=== PATIENT | female | born 1970 | race Caucasian/White ===

== ENCOUNTER → 2018-02-28 | Day surgery (SDC) | payer OTHER ==
[~2018-02-28] MED LIST: CYCLOBENZAPRINE5 MG PO; EPI PEN; FENOFIBRATE145 MG; FERROUS FUMARA324 MG; LEVOCETIRIZINE D5 MG; LIDOCAINE HCL 2% LOCAL INJ 5 ML SDV VIAL INJ ONE; METFORMIN HCL500 MG PO; MIDAZOLAM HCL 5MG/ML 2ML VIAL ONE; NASAL SPRAY30 M1; OMEPRAZOLE40 MG; PROPOFOL IV EMULSION 10 MG/ML 50 ML VIAL ONE; SINGULAIR10 MG; SUCRALFATE1 GM PO; TRAZODONE HCL50 MG PO; TRINTELLIX; VENTOLIN HFA18 GM; VITAMIN B-121000 MCG PO; VITAMIN D3 PO; [UNRECOGNIZED DRUG - OTHER]
[2018-02-28 14:57] LABS: WBC,FECAL (FECAL LACTOFERRIN) NEGATIVE (NEGATIVE)
--- NOTE | 2018-02-28 15:32 | Operative Report ---
DATE OF PROCEDURE: February 28, 2018 REFERRING PHYSICIAN: Dr. Momo Carmona. PROCEDURES PERFORMED: 1. Esophagogastroduodenoscopy with biopsies. 2. Colonoscopy with polypectomy and biopsies. INDICATIONS FOR ESOPHAGOGASTRODUODENOSCOPY: Heartburn indigestion. INDICATIONS FOR COLONOSCOPY: Colorectal cancer screening. Lower abdominal pain. Diarrhea. History of fecal incontinence. MEDICATION: Patient was done under MAC. Please see anesthesiologist's note. PROCEDURE: With patient in the left lateral decubitus position, the flexible fiberoptic Olympus gastroscope was introduced into the esophagus under direct visualization without any difficulty. There was some patchy erythema noted in the distal esophagus. The scope was then advanced with ease into the stomach, traversing a moderate-sized hiatal hernia. Mucosa overlying the antrum and the body revealed some patchy intense erythema with mild to moderate edema, and biopsies were obtained and sent to stain for H. pylori. Some scattered hyperplastic-appearing polyps were noted in the body of the stomach, and some were partially excised with the cold biopsy forceps. The pylorus was of normal contour and shape, was intubated with ease, and scope was advanced all the way to the 2nd portion of the duodenum. There was approximately a 6 mm polypoid lesion noted in the proximal 2nd portion, and that was biopsied. The mucosa overlying the duodenal bulb appeared to be within normal limits. The scope was then withdrawn back into the stomach and retroflexed, and the mucosa overlying the fundus and the cardia appeared to be within normal limits. The scope was then straightened out. The stomach was decompressed. The scope was subsequently withdrawn. Patient tolerated the procedure well. IMPRESSION: 1. Distal esophagitis, mild. 2. Moderate-sized hiatal hernia. 3. Gastritis biopsied. Biopsies sent to stain for H. pylori. 4. Gastric polyps, body, some partially excised with the cold biopsy forceps. 5. Approximately 6 mm polypoid lesion proximal 2nd portion of duodenum biopsied. PLAN: Follow up histology. Increase omeprazole to 40 mg 1 p.o. a.c. b.i.d. Patient was then turned around and after adequate lubrication of the anal canal, a flexible fiberoptic Olympus colonoscope was inserted into the rectum with ease and advanced all the way to the cecum. A minute polyp was noted in the cecum, and that was excised with the cold biopsy forceps. The ileocecal valve was intubated, and the scope was advanced into the terminal ileum. Biopsies were obtained. The scope was then withdrawn back into the colon. It was then withdrawn slowly, and mucosa overlying the ascending and the transverse appeared to be within normal limits. Some patchy mild inflammatory changes were noted in the distal descending, the sigmoid and the rectum, and random biopsies were obtained. One polyp was hot biopsied from the sigmoid colon. The scope was then retroflexed into the distal rectum and small internal hemorrhoids were noted, none of which was actively bleeding. The scope was then straightened out. It was subsequently withdrawn after securing an adequate stool specimen that was sent for the appropriate stool studies. Patient tolerated procedure well. IMPRESSION: 1. Cecal polyp, minute, excised with the cold biopsy forceps. 2. Mild patchy left-sided colitis. 3. Sigmoid colon polyp hot biopsied. 4. Proctitis, mild, biopsied. 5. Internal hemorrhoids, none actively bleeding. PLAN: Follow up histology. Follow up stool studies. Initiate VSL#3 one p.o. daily and Bentyl 10 mg one p.o. t.i.d.. Patient will need a followup colonoscopy in 3 to 5 years. Job#: [id number] cc:MOMO CARMONA MD
[2018-03-01 10:20] LABS: C DIFFICILE TOXIN A&B AMP PROB NEGATIVE (NEGATIVE)
== END | disposition home or self-care (01) ==
LOC: OR 10:28
PROVIDERS: ATTEND Internal Medicine Gastroenterology
DX: Z12.11 Encounter for screening for malignant neoplasm of colon (principal); Z86.010 Personal history of colon polyps; R12 Heartburn; R11.0 Nausea; R19.7 Diarrhea, unspecified; K20.9 Esophagitis, unspecified; K44.9 Diaphragmatic hernia without obstruction or gangrene; K29.70 Gastritis, unspecified, without bleeding; K63.5 Polyp of colon; K51.50 Left sided colitis without complications; K62.89 Other specified diseases of anus and rectum; K64.8 Other hemorrhoids; J45.909 Unspecified asthma, uncomplicated; E11.9 Type 2 diabetes mellitus without complications
CPT/HCPCS: 36415; 43239; 45384; 81025; 82948; 83630; 83993; 87045; 87177; 87328; 87493; J2001; J2250; 45380

== ENCOUNTER → 2019-02-01 | Day surgery (SDC) | payer OTHER ==
[~2019-02-01] MED LIST changes: +DICYCLOMINE HCL20 MG PO; +FENTANYL CITRATE/PF 100MCG/2 ML INJ ONE; +LATUDA20 MG PO; -LIDOCAINE HCL 2% LOCAL INJ 5 ML SDV VIAL INJ ONE; +MIDAZOLAM HCL 2 MG/2 ML VIAL ONE; -MIDAZOLAM HCL 5MG/ML 2ML VIAL ONE; +VITAMIN D1000 UNI1 PO; +VYVANSE20 MG PO
--- OUTSIDE RECORDS SUMMARY | 2019-02-01 11:41 | XMS REPORT | Continuity of Care Document ---
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 Role Phone [employer] Information [employer] Unavailable Unavailable Problems Problem Status Onset Date Classification Date Reported Comments Source Acute upper respiratory infection 06/04/2016 Diagnosis 06/04/2016 [facility] Allergic rhinitis 06/04/2016 Diagnosis 06/04/2016 [facility] Dysfunction of Eustachian Tube Problem 06/04/2016 [facility] Acute Pharyngitis Problem 06/04/2016 [facility] Upper Respiratory Infection Problem 06/04/2016 [facility] Acute Upper Respiratory Infection Problem 06/04/2016 [facility] Allergic Rhinitis Problem 06/04/2016 [facility] Cellulitis Problem 06/04/2016 [facility] Medications Medication Details Route Status Patient Instructions Ordering Provider Order Date Source 200 ACTUAT Albuterol 0.09 MG/ACTUAT Metered Dose Inhaler albuterol sulfate HFA 90 mcg/actuation aerosol inhaler Inhale 2 puffs every 4-6 hours by inhalation route as needed for wheezing. Active [facility] Amoxicillin 500 MG Oral Capsule amoxicillin 500 mg capsule Active [facility] Antipyrine 54 MG/ML / Benzocaine 14 MG/ML Otic Solution antipyrine-benzocaine 5.4 %-1.4 % ear drops Active [facility] aripiprazole 2 MG Oral Tablet aripiprazole 2 mg tablet Active [facility] Aspirin 81 MG Delayed Release Oral Tablet aspirin 81 mg tablet,delayed release Active [facility] Azelastine hydrochloride 0.137 MG/ACTUAT Metered Dose Nasal [place] azelastine 137 mcg (0.1 %) nasal spray aerosol Active [facility] Azithromycin 250 MG Oral Tablet azithromycin 250 mg tablet Active [facility] suvorexant 20 MG Oral Tablet [Belsomra] Belsomra 20 mg tablet Active [facility] Brompheniramine Maleate 0.4 MG/ML / Dextromethorphan Hydrobromide 2 MG/ML / Pseudoephedrine Hydrochloride 6 MG/ML Oral Solution [Bromfed DM] Bromfed DM 2 mg-30 mg-10 mg/5 mL syrup Take 10 mL every 6 hours by oral route as needed for cough. Active [facility] Acetaminophen 300 MG / butalbital 50 MG / Caffeine 40 MG Oral Capsule bpflbepvkf-gqifpsijtftab-ojuucuub 50 mg-300 mg-40 mg capsule Active [facility] cefpodoxime 200 MG Oral Tablet cefpodoxime 200 mg tablet Active [facility] Cephalexin 500 MG Oral Capsule cephalexin 500 mg capsule Active [facility] Cimetidine 200 MG Oral Tablet cimetidine 200 mg tablet Active [facility] Ciprofloxacin 500 MG Oral Tablet ciprofloxacin 500 mg tablet Active [facility] Clarithromycin 500 MG Oral Tablet clarithromycin 500 mg tablet TAKE 1 TABLET BY MOUTH EVERY 12 HOURS Active [facility] Clindamycin 300 MG Oral Capsule clindamycin 300 mg capsule Active [facility] Clobetasol Propionate 0.5 MG/ML Topical Cream clobetasol 0.05 % topical cream Active [facility] Vitamin B 12 1 MG/ML Injectable Solution cyanocobalamin (vit B-12) 1,000 mcg/mL injection solution Active [facility] Cyclobenzaprine hydrochloride 10 MG Oral Tablet cyclobenzaprine 10 mg tablet Active [facility] Cyclobenzaprine hydrochloride 5 MG Oral Tablet cyclobenzaprine 5 mg tablet Active [facility] Desipramine Hydrochloride 25 MG Oral Tablet desipramine 25 mg tablet Active [facility] Divalproex Sodium 250 MG Delayed Release Oral Tablet divalproex 250 mg tablet,delayed release Active [facility] 24 HR Divalproex Sodium 250 MG Extended Release Oral Tablet divalproex ER 250 mg tablet,extended release 24 hr Take 1 tablet every day by oral route. Active [facility] Famotidine 26.6 MG / Ibuprofen 800 MG Oral Tablet [Duexis] Duexis 800 mg-26.6 mg tablet Active [facility] Pentosan Polysulfate 100 MG Oral Capsule [Elmiron] Elmiron 100 mg capsule TAKE 2 CAPSULES BY MOUTH EVERY MORNING TAKE ONE CAPSULE BY MOUTH AT BEDTIME Active [facility] 0.3 ML Epinephrine 1 MG/ML Auto-Injector [Epipen] EpiPen 2-Jayden 0.3 mg/0.3 mL injection, auto-injector USE DIRECTED NEEDED Active [facility] Escitalopram 10 MG Oral Tablet escitalopram 10 mg tablet Active [facility] Escitalopram 20 MG Oral Tablet escitalopram 20 mg tablet Active [facility] Fenofibrate 150 MG Oral Capsule fenofibrate 150 mg capsule Take 1 capsule every day by oral route at bedtime. Active [facility] Fenofibrate 145 MG Oral Tablet fenofibrate nanocrystallized 145 mg tablet Active [facility] ferrous sulfate 325 MG Oral Tablet ferrous sulfate 325 mg (65 mg iron) tablet TAKE ONE (1) TABLET(S) BY MOUTH ONCE A DAY. Active [facility] Fluticasone propionate 0.05 MG/ACTUAT Metered Dose Nasal [place] fluticasone 50 mcg/actuation nasal spray,suspension Inhale 2 sprays into each nostril EVERY DAY Active [facility] Oly 0.35 mg tablet Oly 0.35 mg tablet TAKE 1 TABLET BY MOUTH EVERY DAY Active [facility] Hydroxyzine Hydrochloride 25 MG Oral Tablet hydroxyzine HCl 25 mg tablet Active [facility] Hydroxyzine Pamoate 25 MG Oral Capsule hydroxyzine pamoate 25 mg capsule Active [facility] lamotrigine 100 MG Oral Tablet lamotrigine 100 mg tablet TAKE ONE (1) TABLET(S) BY MOUTH TWICE A DAY. Active [facility] lamotrigine 25 MG Oral Tablet lamotrigine 25 mg tablet Active [facility] Levofloxacin 500 MG Oral Tablet levofloxacin 500 mg tablet Active [facility] 1 ML medroxyprogesterone acetate 150 MG/ML Prefilled Syringe medroxyprogesterone 150 mg/mL intramuscular syringe Active [facility] Metformin hydrochloride 500 MG Oral Tablet metformin 500 mg tablet Active [facility] methylprednisolone 4 mg tablets in a dose pack methylprednisolone 4 mg tablets in a dose pack TAKE 6 TABLETS ON DAY 1 DIRECTED ON PACKAGE AND DECREASE BY 1 TAB EACH DAY FOR A TOTAL OF 6 DAYS Active [facility] Metronidazole 500 MG Oral Tablet metronidazole 500 mg tablet Active [facility] montelukast 10 MG Oral Tablet montelukast 10 mg tablet Active [facility] Hydrocortisone 10 MG/ML / Neomycin 3.5 MG/ML / Polymyxin B 93603 UNT/ML Otic Suspension cgpueyeo-tohxpfxti-dguvciiqb 3.5 mg-10,000 unit/mL-1 % ear drops,susp Active [facility] NITROFURANTOIN, MACROCRYSTALS 25 MG / Nitrofurantoin, Monohydrate 75 MG Oral Capsule nitrofurantoin monohydrate/macrocrystals 100 mg capsule TAKE ONE CAPSULE BY MOUTH TWICE A DAY Active [facility] Ondansetron 4 MG Oral Tablet ondansetron HCl 4 mg tablet Active [facility] Prednisone 20 MG Oral Tablet prednisone 20 mg tablet Active [facility] Dextromethorphan Hydrobromide 3 MG/ML / Promethazine Hydrochloride 1.25 MG/ML Oral Solution promethazine-DM 6.25 mg-15 mg/5 mL syrup Active [facility] atomoxetine 80 MG Oral Capsule [Strattera] Strattera 80 mg capsule TAKE 1 CAPSULE BY MOUTH AT BEDTIME Active [facility] Oseltamivir 75 MG Oral Capsule [Tamiflu] Tamiflu 75 mg capsule Active [facility] Trazodone Hydrochloride 100 MG Oral Tablet trazodone 100 mg tablet Active [facility] Hyoscyamine Sulfate 0.12 MG / Methenamine 118 MG / Methylene blue 10 MG / phenyl salicylate 36 MG / Sodium Phosphate, Monobasic 40.8 MG Oral Capsule [Uramit] Uramit MB 118 mg-10 mg-40.8 mg-36 mg capsule Active [facility] Esomeprazole 20 MG / Naproxen 500 MG Delayed Release Oral Tablet [Vimovo] Vimovo 500 mg-20 mg tablet,immediate and delay release TAKE ONE (1) TABLET(S) BY MOUTH TWICE A DAY BEFORE MEALS. Active [facility] Ergocalciferol 43068 UNT Oral Capsule Vitamin D2 50,000 unit capsule Active [facility] levocetirizine dihydrochloride 5 MG Oral Tablet [Xyzal] Xyzal 5 mg tablet Take 1 tablet every day by oral route for 30 days. Active [facility] cetirizine hydrochloride 10 MG Oral Capsule [Zyrtec] Zyrtec 10 mg capsule TAKE ONE CAPSULE BY MOUTH EVERY MORNING Active [facility] Allergies, Adverse Reactions, Alerts Substance Category Reaction Severity Reaction type Status Date Reported Comments Source Augmentin Rash Allergy to substance 09/24/2011 [facility] Erythromycin Base Rash Allergy to substance 09/24/2011 [facility] Egg Other Allergy to substance 08/23/2014 [facility] Immunizations Immunization Date Given Site Status Last Updated Comments Source Td (adult) 09/08/2007 completed [facility] Results Order Name Results Value Reference Range Date Interpretation Comments Source RESULT negative 06/04/2016 [facility] SWAB LOCATION Left and Right tonsillar pillars 06/04/2016 [facility] Pathology Reports No Data Provided for This Section Diagnostic Reports No Data Provided for This Section Consultation Notes No Data Provided for This Section Discharge Summaries No Data Provided for This Section History and Physicals No Data Provided for This Section Vital Signs Vital Sign Value Date Comments Source Diastolic (mm Hg) 80 06/04/2016 [facility] Height 62 06/04/2016 [facility] Systolic (mm Hg) 110 06/04/2016 [facility] Weight 195 06/04/2016 [facility] Encounters Location Location Details Encounter Type Encounter Number Reason For Visit Attending Provider ADM Date DC Date Status Source [place] - [facility] - [id number] Mindikeagan Pastor, [employer]: [address] [address], Ph. [phone] [id number] Mindi Pastor 06/04/2016 [facility] Procedures Procedure Code Date Perfomer Comments Source Anesth Knee Area Surgery [facility] Delivery [facility] Assessment and Plan No Data Provided for This Section Plan of Care No Data Provided for This Section Social History Social History Date Source Smoking Status Never Smoker 09/24/2011 [facility] Family History No Data Provided for This Section Advance Directives No Data Provided for This Section Functional Status No Data Provided for This Section
--- OUTSIDE RECORDS SUMMARY | 2019-02-01 11:42 | XMS REPORT | Encounter Summary ---
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 Acute upper respiratory infection rapid strep group A, throat upper respiratory infection (cold): care instructions Bromfed DM 2 mg-30 mg-10 mg/5 mL syrup albuterol sulfate HFA 90 mcg/actuation aerosol inhaler 2. Allergic rhinitis allergies: care instructions Xyzal 5 mg tablet fluticasone 50 mcg/actuation nasal spray,suspension Discussion Note: None recorded. Plan of Care Patient Instructions Please drink plenty of fluids, rest, good hand washing, cover your mouth while coughing and sneezing. Try warm salt water gargles, throat lozanges, soups ortea with honey and/or lemon juice to soothe the throat.Take ibuprofen or tylenol every 6 hours as needed for fever and aches. Please read all the side effects of the medications, if you develop any side effects immediately stop the medication and please contact your PCP/UC/ER or [facility] or call 911. Follow up with PCP/UC/ER or seek care if symptomsget worseor no improvement in 3 to 4 days. Patient verbalizes understanding and agrees to the plan. Reminders Provider Appointments None recorded. Lab Rapid Strep Group a, Throat 06/04/2016 [facility] Referral None recorded. Procedures None recorded. Surgeries None recorded. Imaging None recorded. Medications Name Start Date albuterol sulfate HFA 90 mcg/actuation aerosol inhaler Inhale 2 puffs every 4-6 hours by inhalation route as needed for wheezing. amoxicillin 500 mg capsule antipyrine-benzocaine 5.4 %-1.4 % ear drops aripiprazole 2 mg tablet aspirin 81 mg tablet,delayed release azelastine 137 mcg (0.1 %) nasal spray aerosol azithromycin 250 mg tablet Belsomra 20 mg tablet Bromfed DM 2 mg-30 mg-10 mg/5 mL syrup Take 10 mL every 6 hours by oral route as needed for cough. mvirwhncnx-nuxsrmslbopyo-lbqnxhny 50 mg-300 mg-40 mg capsule cefpodoxime 200 mg tablet cephalexin 500 mg capsule cimetidine 200 mg tablet ciprofloxacin 500 mg tablet clarithromycin 500 mg tablet TAKE 1 TABLET BY MOUTH EVERY 12 HOURS clindamycin 300 mg capsule clobetasol 0.05 % topical cream cyanocobalamin (vit B-12) 1,000 mcg/mL injection solution cyclobenzaprine 10 mg tablet cyclobenzaprine 5 mg tablet desipramine 25 mg tablet divalproex 250 mg tablet,delayed release divalproex ER 250 mg tablet,extended release 24 hr Take 1 tablet every day by oral route. Duexis 800 mg-26.6 mg tablet Elmiron 100 mg capsule TAKE 2 CAPSULES BY MOUTH EVERY MORNING TAKE ONE CAPSULE BY MOUTH AT BEDTIME EpiPen 2-Jayden 0.3 mg/0.3 mL injection, auto-injector USE DIRECTED NEEDED escitalopram 10 mg tablet escitalopram 20 mg tablet fenofibrate 150 mg capsule Take 1 capsule every day by oral route at bedtime. fenofibrate nanocrystallized 145 mg tablet ferrous sulfate 325 mg (65 mg iron) tablet TAKE ONE (1) TABLET(S) BY MOUTH ONCE A DAY. fluticasone 50 mcg/actuation nasal spray,suspension Inhale 2 sprays into each nostril EVERY DAY Oly 0.35 mg tablet TAKE 1 TABLET BY MOUTH EVERY DAY hydroxyzine HCl 25 mg tablet hydroxyzine pamoate 25 mg capsule lamotrigine 100 mg tablet TAKE ONE (1) TABLET(S) BY MOUTH TWICE A DAY. lamotrigine 25 mg tablet levofloxacin 500 mg tablet medroxyprogesterone 150 mg/mL intramuscular syringe metformin 500 mg tablet methylprednisolone 4 mg tablets in a dose pack TAKE 6 TABLETS ON DAY 1 DIRECTED ON PACKAGE AND DECREASE BY 1 TAB EACH DAY FOR A TOTAL OF 6 DAYS metronidazole 500 mg tablet montelukast 10 mg tablet mcaezscc-bdejslgxn-dccmlfmyi 3.5 mg-10,000 unit/mL-1 % ear drops,susp nitrofurantoin monohydrate/macrocrystals 100 mg capsule TAKE ONE CAPSULE BY MOUTH TWICE A DAY ondansetron HCl 4 mg tablet prednisone 20 mg tablet promethazine-DM 6.25 mg-15 mg/5 mL syrup Strattera 80 mg capsule TAKE 1 CAPSULE BY MOUTH AT BEDTIME Tamiflu 75 mg capsule trazodone 100 mg tablet Uramit MB 118 mg-10 mg-40.8 mg-36 mg capsule Vimovo 500 mg-20 mg tablet,immediate and delay release TAKE ONE (1) TABLET(S) BY MOUTH TWICE A DAY BEFORE MEALS. Vitamin D2 50,000 unit capsule Xyzal 5 mg tablet Take 1 tablet every day by oral route for 30 days. Zyrtec 10 mg capsule TAKE ONE CAPSULE BY MOUTH EVERY MORNING Medications Administered None recorded. Vitals Height Weight BMI Blood Pressure 5 ft 2 in 195 lbs 35.7 110/80 Lab Results Date Name Result Description Value Range Status Rapid Strep Group a, Throat Result negative Swab Location Left and Right tonsillar pillars Allergies Name Reaction Severity Onset Augmentin Rash Egg Other Erythromycin Base Rash Problems Name Status Onset Date Source Dysfunction of Eustachian Tube Active Encounter Acute Pharyngitis Active Encounter Upper Respiratory Infection Active Encounter Acute Upper Respiratory Infection Active Encounter Allergic Rhinitis Active Encounter Cellulitis Active Encounter Procedures Date Name Performed by Anesth Knee Area Surgery Information not available Delivery Information not available Vaccine List Vaccine Type Td (adult) 09/07/2007 Social History Smoking Status Never Smoker Past Encounters 06/04/2016 Acute Upper Respiratory Infection; Allergic Rhinitis Mindi Dawit, [facility]: [address] [place] [address], Ph. History of Present Illness Kzpug-Vakhpzshkz-Lxjfudx Reported By: Patient HPI: Location: head/sinuses. Quality: productive cough, sore throat, colored phlegm, nasal/sinus congestion, dry cough. Duration: 4days. Severity: moderate. Onset/Timing: sudden. Context: no sick contacts, no foreign travel, non-smoker, allergies. Modifying factors: OTC medication. Associated Symptoms: no sputum production, no shortness of breath, no wheezing, no change in number of pillows needed to sleep at night, no sweats, no significant weight gain, no significant weight loss, no morning cough, no vomiting, no diarrhea, no rash, no nausea, sore throat Notes: Pt also reports intermittent bilateral ear pain. Review of Systems Basic Reported By: Patient Constitutional: Constitutional: no fever Eyes: Eyes: no eye complaints Ixsg-Jgxu-Sdxey-Throat: Ears: ear pain. Nose: nose/sinus problems. Mouth/Throat: no bleeding gums, no mouth complaints, no teeth problems, sore throat Cardiovascular: Cardiovascular: no chest pain, no shortness of breath, no known heart murmur Respiratory: Respiratory: no shortness of breath, cough, wheezing Gastrointestinal: Gastrointestinal: no abdominal pain, no vomiting / diarrhea Genitourinary: Genitourinary: no urinary complaints, no discharge Musculoskeletal: Musculoskeletal: no muscle aches, no muscle weakness, no arthralgias/joint pain, no back pain Skin: Skin: no abnormal / changing mole, no jaundice, no rashes Neurologic: Neurologic: no loss of consciousness, no weakness, no numbness, no seizures, no dizziness, headache Physical Exam Adult Basic, Adult Female Complete Reported By: Patient Constitutional: General Appearance: healthy-appearing, well-nourished, well-developed. Level of Distress: NAD. Ambulation: ambulating normally Psychiatric: Mental Status: active and alert. Orientation: to time, to place, to person Eyes: Lids and Conjunctivae: non-injected, no discharge, no pallor. Pupils: PERRLA. EOM: EOMI. Lens: clear. Sclerae: non-icteric Aza-Jaqh-Vhdro-Throat: Ears: no lesions on external ear, no outer ear tenderness, EACs clear, TMs clear. Hearing: no hearing loss. Nose: no lesions on external nose, nares patent, no septal deviation, nasal passages clear, no sinus tenderness, nasal discharge--rhinorrhea, post nasal drip; red swollen nasal mucosa. Lips, Teeth, and Gums: no mouth or lip ulcers. Oropharynx: moist mucous membranes, no exudates, tonsils not enlarged, erythema; THRUSH-PT SEEN BY THE DOCTOR AND ON MEDICATION Neck: Neck: supple. Lymph Nodes: no cervical LAD Lungs: Respiratory effort: no dyspnea, no tachypnea. Auscultation: breath sounds normal Cardiovascular: Heart Auscultation: RRR, no murmurs Neurologic: Gait and Station: normal gait Skin: Inspection and palpation: no rash
[2019-02-01 17:15] VITALS: BP 128/81
--- NOTE | 2019-02-01 21:01 | Operative Report ---
DATE OF PROCEDURE: 02/01/2019 SURGEON: Wes Loza MD PROCEDURE: Esophagogastroduodenoscopy with biopsies. INDICATIONS FOR PROCEDURE: The patient sent by business services clerk to rule out eosinophilic esophagitis. MEDICATIONS: The patient was done under MAC, please see anesthesiologist's note. PROCEDURE IN DETAIL: With the patient in left lateral decubitus position, flexible fiberoptic Olympus gastroscope was introduced into the esophagus under direct visualization without any difficulty. Biopsies were obtained from the esophagus to rule out eosinophilic esophagitis. The scope was then advanced with ease into the stomach, traversing a small sliding hiatal hernia. Mucosa overlying the antrum and the body revealed some patchy areas of erythema. The pylorus was intubated with ease and the scope was advanced all the way to the second portion of the duodenum. The scope was then withdrawn slowly and biopsies were obtained from the second portion and duodenal bulb to rule out sprue. A minute nodule was noted in the proximal second portion and it was also biopsied. The scope was then withdrawn back into the stomach and retroflexed mucosa overlying the fundus and cardia grossly other than for some hyperplastic-appearing polyps appeared to be within normal limits. No biopsies were obtained from the polyps as biopsies were obtained in the recent past and those were of the fundic gland variety. The scope was then straightened out and was subsequently withdrawn. The patient tolerated the procedure well. IMPRESSION: 1. Rule out eosinophilic esophagitis. 2. Small sliding hiatal hernia. 3. Gastritis, mild. 4. Rule out sprue. 5. Minute nodule, proximal second portion, biopsied. PLAN: Follow up histology. Continue omeprazole 40 mg one p.o. a.c. b.i.d. and Carafate 1 g p.o. a.c. t.i.d. and at bedtime. Wes Loza MD [facility] [place] /[id number] cc: MD Ace Carvalho MD
== END | disposition home or self-care (01) ==
LOC: OR 11:39
PROVIDERS: ATTEND Internal Medicine Gastroenterology
DX: K20.0 Eosinophilic esophagitis (principal); K31.7 Polyp of stomach and duodenum; K63.5 Polyp of colon; K29.70 Gastritis, unspecified, without bleeding; K44.9 Diaphragmatic hernia without obstruction or gangrene; K31.89 Other diseases of stomach and duodenum; R19.7 Diarrhea, unspecified; K90.0 Celiac disease; E11.9 Type 2 diabetes mellitus without complications; J45.909 Unspecified asthma, uncomplicated; D72.820 Lymphocytosis (symptomatic); Z88.0 Allergy status to penicillin; Z79.82 Long term (current) use of aspirin; Z79.4 Long term (current) use of insulin; Z79.84 Long term (current) use of oral hypoglycemic drugs
CPT/HCPCS: 36415; 43239; 81025; 82948; J2250; J2704; J3010